=== PATIENT | female | born 1960 | race Caucasian/White ===

== ENCOUNTER 2016-07-12 05:42 | Day surgery (SDC) | payer MEDICAID ==
[2016-07-11 14:46] LABS: BASOPHIL # 0.1 10^3/ul (0.0-0.1); BASOPHILS % 0.5 % (0.0-2.0); EOSINOPHILS # 0.2 10^3/ul (0.0-0.5); HEMATOCRIT 43.4 % (37.0-47.0); HEMOGLOBIN 14.6 g/dl (12.0-16.0); LYMPHOCYTES # 4.6 10^3/ul (0.8-2.9); LYMPHOCYTES % 45.2 % (15.0-51.0); MEAN CORPUSCULAR HEMOGLOBIN 30.6 pg (29.0-33.0); MEAN CORPUSCULAR HGB CONC 33.7 g/dl (32.0-37.0); MEAN CORPUSCULAR VOLUME 90.8 fl (82.0-101.0); MEAN PLATELET VOLUME 7.6 fl (7.4-10.4); MONOCYTES % 9.4 % (0.0-11.0); NEUTROPHIL # 4.4 10^3/ul (1.6-7.5); NEUTROPHILS % 42.9 % (39.0-77.0); PLATELET COUNT 419 10^3/UL (140-440); RED BLOOD COUNT 4.78 10^6/ul (4.20-5.40); RED CELL DISTRIBUTION WIDTH 13.7 % (11.5-14.5); UNCORRECTED WBC 10.1 10^3/ul (4.8-10.8); WHITE BLOOD COUNT 10.1 10^3/ul (4.8-10.8)
[2016-07-11 14:48] LABS: CONDITION 1
[2016-07-11 15:16] LABS: CALCIUM 9.6 mg/dl (8.4-10.2); CREATININE 0.67 mg/dl (0.44-1.00); INR 0.85; PROTIME 11.6 Sec (12.2-14.2); PT RATIO 0.9
[2016-07-11 15:17] LABS: PARTIAL THROMBOPLASTIN TIME 28.3 Sec (25.0-35.0)
[2016-07-12] VITALS (22 sets, daily range): BP systolic 98–146; BP diastolic 52–78; PULSE 63–84; RESP 11–21; Ht 157.5 cm; Wt 91.0 kg
[~2016-07-12] VITALS: Ht 157.5 cm; Wt 91.0 kg
[2016-07-12] MEDS ORDERED: CEFAZOLIN 2 GM/50 ML (PMX) 50 ML IVPB ONE (06:00)
[2016-07-12] MEDS: SOD CHLORIDE 0.9% 1,000 ML IV SCH ×2 (06:00→19:20)
[2016-07-12 09:16] LABS: BASOPHIL # 0.1 10^3/ul (0.0-0.1); BASOPHILS % 0.5 % (0.0-2.0); EOSINOPHILS # 0.2 10^3/ul (0.0-0.5); EOSINOPHILS % 1.5 % (0.0-7.0); HEMATOCRIT 41.4 % (37.0-47.0); HEMOGLOBIN 14.1 g/dl (12.0-16.0); LYMPHOCYTES # 4.2 10^3/ul (0.8-2.9); LYMPHOCYTES % 42.7 % (15.0-51.0); MEAN CORPUSCULAR HEMOGLOBIN 30.8 pg (29.0-33.0); MEAN CORPUSCULAR HGB CONC 34.1 g/dl (32.0-37.0); MEAN CORPUSCULAR VOLUME 90.5 fl (82.0-101.0); MEAN PLATELET VOLUME 8.2 fl (7.4-10.4); MONOCYTE # 0.7 10^3/ul (0.3-0.9); MONOCYTES % 7.1 % (0.0-11.0); NEUTROPHIL # 4.8 10^3/ul (1.6-7.5); NEUTROPHILS % 48.2 % (39.0-77.0); PLATELET COUNT 391 10^3/UL (140-440); RED BLOOD COUNT 4.58 10^6/ul (4.20-5.40); RED CELL DISTRIBUTION WIDTH 13.3 % (11.5-14.5); UNCORRECTED WBC 9.9 10^3/ul (4.8-10.8); WHITE BLOOD COUNT 9.9 10^3/ul (4.8-10.8)
[2016-07-12 09:17] LABS: CONDITION 1
--- NOTE | 2016-07-12 09:19 | RADRPT ---
PROCEDURE: XR Chest. CLINICAL INDICATION: Preoperative, breast cancer TECHNIQUE: Single portable view of the chest was obtained COMPARISON: None FINDINGS: The heart and mediastinum are within normal limits. There are mild bibasilar atelectatic changes. The lungs are otherwise clear. There is no pleural effusion or pneumothorax. RPTAT: AA IMPRESSION: Mild bibasilar atelectatic changes. .Joe Dumont MD, MD Date Time Electronically viewed and signed by .Joe Dumont MD, on 07/12/2016 09:18 .S/
[2016-07-12 09:26] LABS: INR 0.86; PROTIME 11.7 Sec (12.2-14.2); PT RATIO 0.9
[2016-07-12 09:27] LABS: PARTIAL THROMBOPLASTIN TIME 29.2 Sec (25.0-35.0); POTASSIUM 4.7 mmol/L (3.5-5.1)
[2016-07-12 09:30] LABS: CALCIUM 9.5 mg/dl (8.4-10.2); CREATININE 0.66 mg/dl (0.44-1.00)
[2016-07-12] MEDS ORDERED: ISOSULFAN BLUE 1% 5 ML INJ SC ONE (09:57)
[2016-07-12] MEDS ORDERED: FENTAnyl 50 MCG/ML VIAL ONE (10:24)
[2016-07-12] MEDS ORDERED: HYDROmorphONE (0.2 MG/ML) 10ML SYG IV PRN ×2 (11:00)
[2016-07-12] MEDS ORDERED: DIPHENHYDRAMINE 50 MG INJ IV PRN (11:00)
[2016-07-12] MEDS ORDERED: METOCLOPRAMIDE 10 MG INJ IV PRN (11:00)
[2016-07-12] MEDS ORDERED: FENTAnyl 50 MCG/ML VIAL IV PRN ×2 (11:00)
[2016-07-12] MEDS ORDERED: MEPERIDINE 25 MG INJ IV PRN (11:00)
[2016-07-12] MEDS ORDERED: ONDANSETRON 4 MG INJ IV PRN ×2 (11:00→12:00)
--- NOTE | 2016-07-12 11:03 | RADRPT ---
Vent Rate: 65 bpm RR Interval: 0 msec MD Interval: 176 msec QRS Duration: 84 msec QT Interval: 426 msec QTC Interval: 443 msec P-R-T [place]: 45 - 48 - 52 degrees Normal sinus rhythm Normal ECG Electronically Signed By: Nino Frost [id number]
[2016-07-12] MEDS ORDERED: LIDOCAINE 2% (SDV) 5 ML INJ ONE (11:13)
[2016-07-12] MEDS ORDERED: NEOSTIGMINE 3 MG/3 ML SYRINGE ONE (11:13)
[2016-07-12] MEDS ORDERED: ROCURONIUM 50 MG INJ ONE (11:13)
[2016-07-12] MEDS ORDERED: SUCCINYLCHOLINE CHLORIDE 100 MG/5 ML SYG IV ONE (11:13)
[2016-07-12] MEDS ORDERED: CEFAZOLIN 1 GM INJ ONE (11:13)
[2016-07-12] MEDS ORDERED: GLYCOPYRROLATE 0.4 MG INJ ONE (11:13)
[2016-07-12] MEDS ORDERED: PROPOFOL 40 ML ONE (11:13)
[2016-07-12] MEDS ORDERED: morphine 2 MG INJ IV PRN (12:00)
[2016-07-12] MEDS ORDERED: ACETAMINOPHEN 1000MG/100ML IV 100 ML IVPB PRN (12:00)
[2016-07-12] MEDS: HYDROmorphONE (0.2 MG/ML) 10ML SYG IV PRN ×2 (12:07→12:40)
--- NOTE | 2016-07-12 13:13 | OPR ---
DATE OF OPERATION: 07/12/2016 PREOPERATIVE DIAGNOSIS: Invasive cancer, right breast. POSTOPERATIVE DIAGNOSIS: Invasive cancer, right breast. OPERATION PERFORMED: Needle-directed right partial mastectomy and axillary dissection utilizing sen tinel lymph node technique. ANESTHESIA: General. ANESTHESIOLOGIST: Paulo Mckay MD SURGEON: Mckinley Merchant MD PERFORMANCE IMPROVEMENT DIRECTOR: Levy Duncan MD INDICATIONS FOR PROCEDURE: The patient is an unfortunate 55-year-old female who underwent surveilla nce mammography and was found to have a suspicious lesion in her right breast. Subsequent needle bi opsy revealed an invasive cancer. The patient was counseled as to need for surgery. She elected to undergo breast conservation surgery with needle-directed partial mastectomy and axillary dissection utilizing sentinel lymph node technique. She consented and was scheduled for surgery. DESCRIPTION OF PROCEDURE: On the morning of surgery patient presented to [facility] where she underwent localization of the lesion performed by attending radiologist, Dr South Garcia. Subsequently, she was brought to the operating theater, placed under general ane sthesia. The breast and axillary regions were prepped and draped in usual sterile fashion. Approxi mately 4 mL of 1% Lymphazurin blue dye were then injected peritumorally. The breast was gently mass aged for approximately 12 minutes. At this point, a 3 cm incision was made in the right axillary ibrahim irline. Dissection took place using cautery down through the clavipectoral fascia. A dye-stained l ymphatic was identified and traced to a group of lymph nodes including the sentinel lymph node. Thi s group of nodes was removed using the LigaSure device. It was sent for intraoperative analysis. T here were at least 3 lymph nodes found and they did not appear to contain tumor. Therefore, the wou nd was irrigated. A #10 flat Reji-Wilkins drain was brought through the right mid axillary line, c ut to size, and laid within the axilla. It was secured in place with a 2-0 nylon suture in the mj dard fashion and the skin was then reapproximated with 4-0 Vicryl suture in subcuticular fashion. Attention was then directed to performing the right partial mastectomy. A curvilinear incision was made in the region of the previously placed localization wire, which was at approximately the 12 to 1 o'clock location approximately 3 cm from nipple-areolar border. Subcutaneous tissue was dissected with cautery. The skin edges were elevated with skin hooks and wide circumferential dissection of the tissue then took place using cautery down to the pectoralis major fascia. Specimen was then suzy vated, transected, oriented, and sent for radiographic confirmation of capture. Capture was confirm ed. The specimen was then sent for permanent pathologic analysis. The wound was irrigated. Minima l bleeding was controlled with cautery. The skin was then reapproximated with a 4-0 Vicryl suture i n subcuticular fashion. Benzoin and Steri-Strips were then applied to both incisions. The patient tolerated procedure well. Estimated blood loss was 30 mL. There were no complications and the kinza ent was transported in stable condition to the recovery room. Dictated By: MCKINLEY GIBBONS/OPHELIA Conf#: [id number] DID#: [id number]
[2016-07-12] MEDS: D5W-0.45 NACL + KCL 20 MEQ 1,000 ML IV SCH ×2 (14:21→21:48)
--- NOTE | 2016-07-12 23:19 | HP ---
DATE OF ADMISSION: 07/12/2016 CHIEF COMPLAINT AND HISTORY OF PRESENT ILLNESS: The patient is a 55-year-old female who recently un derwent surveillance mammography and was noted to have a suspicious lesion in her right breast. The patient underwent needle biopsy, which revealed it was a cancer. The patient was brought in to the hospital today and underwent needle-directed right partial mastectomy and axillary resection. The p atient did have significant postoperative pain; therefore, the patient is being admitted for further care. No reported fever or chills. No reported vomiting, no reported diarrhea. No reported focal weakness. No history of headache. No history of palpitations. No reported recent fever or chills . No reported leg edema or resting leg pain. REVIEW OF SYSTEMS: Unremarkable. PAST MEDICAL HISTORY: As stated above. SOCIAL HISTORY: No smoking, no alcohol. FAMILY HISTORY: Noncontributory. Meanwhile, will continue morphine 2 mg IV every 1 hour p.r.n. in ad dition patient will also receive IV Zofran on a p.r.n. basis. Further recommendations will depend u ricky patient's hospital course. We will continue to follow. Dictated By: VAZQUEZ RING/OPHELIA Conf#: [id number] DID#: [id number]
[2016-07-13] VITALS: BP 112/59; RESP 19
[2016-07-13] MEDS: SOD CHLORIDE 0.9% 1,000 ML IV SCH (01:48)
[2016-07-13] MEDS: D5W-0.45 NACL + KCL 20 MEQ 1,000 ML IV SCH ×2 (04:35→11:22)
[2016-07-13 07:52] VITALS: BP 100/55; RESP 17
--- NOTE | 2016-07-13 16:05 | PN ---
DATE: 07/13/2016 SUBJECTIVE: This is a patient who is [id number] who had a partial mastectomy on the right-side wi th axillary lymph node dissection. Today is the first postoperative day. Subjectively no complaints . OBJECTIVE: VITAL SIGNS: Stable. Temp afebrile, 98.6, heart rate 64, blood pressure 100/57. The Reji-Wilkins drain has drained 60 mL of serosanguineous fluid in the past 24 hours. The dressi ng is intact. ASSESSMENT: Stable patient postoperative day PLAN: Follow up by Dr. Merchant in his office. Patient is going to go home with Reji-Wilkins drain i n place and the nurses are going to teach her how to drain it and how to measure it and is supposed to measure every night at 8 or 9:00 p.m. and record it down when she goes to Dr. Merchant' office to ta ke the flowsheet with her and also keep the fluid in the Reji-Wilkins reservoir on the day that she goes to the office so that they can see the color of that and the amount of that. The patient under stood, was translated with a airport operations duty manager. The patient understood and does not have any other complain ts, does not have any question, so is going to be discharged after being seen by Dr. Avelar. Dictated By: JARRETT LATHAM/OPHELIA Conf#: [id number] DID#: [id number]
--- NOTE | 2016-07-17 11:48 | DS ---
DATE OF ADMISSION: 07/12/2016 DATE OF DISCHARGE: 07/13/2016 DISCHARGE DIAGNOSES: Invasive cancer of the right breast status post needle-directed right partial mastectomy and axillary dissection utilizing sentinel lymph node technique by Dr. Merchant. BRIEF HISTORY: The patient is a 55-year-old female who underwent surveillance mammography and was f ound to have suspicious lesion in her right breast. Subsequent biopsy revealed invasive cancer. Israel sherman elected to undergo breast conservation surgery with needle-directed partial mastectomy and axi llary dissection, and was admitted and underwent surgery by Dr. Merchant. Postoperatively, the patient experienced significant pain, and patient was admitted for further management and care. HOSPITAL COURSE: The patient was given morphine and Tylenol p.r.n. for pain and Zofran p.r.n. for n ausea. Hence, the patient's condition improved. The patient's pain is well controlled and the kinza ent will be able to ambulate in the hallway. The patient is discharged home. CONDITION ON DISCHARGE: Hemodynamically stable. ACTIVITY: As patient tolerates. DIET: Regular diet. DISCHARGE MEDICATIONS: The patient is given prescriptions for pain, [place] p.r.n. for pain. The patient is instructed to follow up with Dr. Merchant in postoperative appointment in 1 week, and ad ditional plan of care was established for this patient. Plan of care was discussed with Dr. Brent roy. Dictated By: JENNY ODONNELL FACETOR for VAZQUEZ CHENEY MD SR/NTS Conf#: [id number] DID#: [id number]
== END 2016-07-13 16:55 | disposition home or self-care (01) ==
LOC: SDS 05:42 → MS1 14:07 → SDS 07-13 16:55
PROVIDERS: ATTEND Surgery Surgical Oncology
DX: C50.911 Malignant neoplasm of unspecified site of right female breast (principal)
CPT/HCPCS: 19301; 38500; 38792; 71010; 80048; 84703; 85025; 85610; 85730; 88307; 93005; J0131; J0330; J0690; J1170; J2405; J2710; J3010; J3480; J7030; Z7512; Z7610; J2765; Q9968